=== PATIENT | female | born 1995 | race Caucasian/White ===

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

== ENCOUNTER 2018-10-06 21:44 | Inpatient (IN) | payer MEDICAID ==
[~2018-10-06] VITALS: Ht 165.1 cm; Wt 57.7 kg
[~2018-10-06 21:44] MED LIST: IBUP-1222 PO
--- NOTE | 2018-10-06 22:46 | NUR ---
PT ATTEMPTED TO GO [facility] FOR ETOH DETOX. SENT HERE FOR MEDICAL CLEARANCE. PRESENTS W/ TACHYCARDIA AND MODERATE TREMORS. STATES LAST DRINK 5 HOURS. TYPICALLY DRINKS A PINT OF HARD ALCOHOL A DAY. STATES BLOOD IN EMESIS AND "SHOULD HAVE HAD GALL BLADDER OUT YEARS AGO" FELT DIZZY TODAY. PER TRIAGE NOTE VERIFICATION LEAD WITH VSS ERP AT BED SIDE
[2018-10-06] MEDS ORDERED: PANTOPRAZOLE 40 MG IV IVP ONE (23:00)
[2018-10-06] MEDS ORDERED: THIAMINE 100 MG in SODIUM CHLORIDE 0.9% 50 ML IVPB ONE (23:00)
[2018-10-06] MEDS ORDERED: ONDANSETRON 2MG/ML, 2ML IVPush ONE (23:00)
[2018-10-06] MEDS ORDERED: SODIUM CHLORIDE 0.9% 1,000ML IVBOLUS ONE (23:00)
[2018-10-06] MEDS ORDERED: ONDANSETRON 2MG/ML, 2ML ONE (23:08)
[2018-10-06] MEDS ORDERED: LORazepam 2 MG/ML, 1ML ONE (23:09)
[2018-10-06 23:17] LABS: BASOPHILS # (AUTO) 0.03 x10^3/uL (0-0.3); BASOPHILS % (AUTO) 0 % (0-1); EOSINOPHILS % (AUTO) 1 % (1-7); LYMPHOCYTES % (AUTO) 27 % (22-44); MD NO; MEAN CORPUSCULAR HEMOGLOBIN 31.7 pg (27.0-34.8); MEAN CORPUSCULAR HGB CONC 34.6 g/dL (32.4-35.8); MEAN CORPUSCULAR VOLUME 91.7 fL (80-100); MEAN PLATELET VOLUME 7.8 fL (7.4-10.4); MONOCYTES # (AUTO) 0.55 x10^3/uL (0-1.4); MONOCYTES % (AUTO) 6 % (2-9); NEUTROPHILS # (AUTO) 5.71 x10^3/uL (1.8-8.0); NEUTROPHILS % (AUTO) 65 % (42-75); PLATELET COUNT 287 x10^3/uL (130-400); RED BLOOD COUNT 4.32 x10^6/uL (3.82-5.3); RED CELL DISTRIBUTION WIDTH 13.1 % (9.6-15.2)
[2018-10-06] MEDS: LORazepam 2 MG/ML, 1ML IVPush PRN (23:20)
[2018-10-06 23:24] LABS: ALANINE AMINOTRANSFERASE 25 U/L (12-78); ALBUMIN 3.8 g/dL (3.4-5.0); ANION GAP 15 mmol/L (5-15); CALCIUM 8.7 mg/dL (8.5-10.1); CHLORIDE 110 mmol/L (98-107); CREATININE 0.72 mg/dL (0.55-1.02)
[2018-10-06 23:29] LABS: ALKALINE PHOSPHATASE 144 U/L (45-117); BILIRUBIN,TOTAL 0.2 mg/dL (0.2-1.0); TOTAL PROTEIN 7.9 g/dL (6.4-8.2)
--- NOTE | 2018-10-06 23:35 | NUR ---
IV PLACED. BLOOD DRAW. MEDICATED. IVF HUNG.
--- NOTE | 2018-10-06 23:36 | NUR ---
PATIENT TO ULTRASOUND.
[2018-10-06] MEDS ORDERED: PANTOPRAZOLE 40 MG IV ONE (23:37)
--- NOTE | 2018-10-06 23:42 | NUR ---
BACK FROM ULTRASOUND. AWAITING RESULT.
[2018-10-07] MEDS ORDERED: LORazepam 2 MG/ML, 1ML ONE ×2 (00:20→00:25)
[2018-10-07] MEDS: LORazepam 2 MG/ML, 1ML IVPush PRN (00:23)
--- NOTE | 2018-10-07 00:38 | NUR ---
PT REPORT FROM SUBHA RICCI. THIS RN TO ASSUME CARE OF PT. AWAITING US RESULTS. PT HR IN 100-110'S RANGE. TREMORS APPEAR TO BE RESOLVING. NO IMMEDIATE NEEDS. CALL LIGHT WITHIN REACH.
--- NOTE | 2018-10-07 02:05 | NUR ---
[facility] AFTER MEDICAL CLEARANCE PER MD.
[2018-10-07] MEDS ORDERED: PANTOPRAZOLE 40 MG IV IVPush SCH (03:00)
[2018-10-07] MEDS ORDERED: LORazepam 2 MG/ML, 1ML IVPush PRN (03:00)
[2018-10-07] MEDS ORDERED: ONDANSETRON 2MG/ML, 2ML IVPush PRN (03:00)
[2018-10-07] MEDS ORDERED: THIAMINE 100MG TABLET PO ONE (03:00)
[2018-10-07 03:24] VITALS: BP 121/65
[2018-10-07] MEDS: SODIUM CHLORIDE 0.9% 1,000 ML IV SCH ×2 (04:13→14:00)
[2018-10-07 07:06] VITALS: BP 116/63
[2018-10-07 08:37] LABS: BASOPHILS # (AUTO) 0.06 x10^3/uL (0-0.3); BASOPHILS % (AUTO) 1 % (0-1); EOSINOPHILS # (AUTO) 0.15 x10^3/uL (0-0.8); EOSINOPHILS % (AUTO) 2 % (1-7); LYMPHOCYTES # (AUTO) 1.26 x10^3/uL (1-6.1); LYMPHOCYTES % (AUTO) 17 % (22-44); MD NO; MEAN CORPUSCULAR HEMOGLOBIN 30.5 pg (27.0-34.8); MEAN CORPUSCULAR HGB CONC 33.2 g/dL (32.4-35.8); MEAN CORPUSCULAR VOLUME 91.7 fL (80-100); MONOCYTES # (AUTO) 0.69 x10^3/uL (0-1.4); MONOCYTES % (AUTO) 9 % (2-9); NEUTROPHILS # (AUTO) 5.49 x10^3/uL (1.8-8.0); NEUTROPHILS % (AUTO) 72 % (42-75); PLATELET COUNT 231 x10^3/uL (130-400); RED BLOOD COUNT 3.96 x10^6/uL (3.82-5.3); RED CELL DISTRIBUTION WIDTH 13.4 % (9.6-15.2)
[2018-10-07 08:47] LABS: ALBUMIN 3.2 g/dL (3.4-5.0); ANION GAP 5 mmol/L (5-15); CALCIUM 8.6 mg/dL (8.5-10.1); CHLORIDE 111 mmol/L (98-107)
[2018-10-07 08:51] LABS: ALANINE AMINOTRANSFERASE 20 U/L (12-78); ALKALINE PHOSPHATASE 116 U/L (45-117); BILIRUBIN,TOTAL 0.8 mg/dL (0.2-1.0); CREATININE 0.56 mg/dL (0.55-1.02); TOTAL PROTEIN 6.7 g/dL (6.4-8.2)
[2018-10-07] MEDS ORDERED: FOLIC ACID 1 MG TABLET PO SCH (09:00)
[2018-10-07] MEDS ORDERED: FOLI-17 PO (13:46)
[2018-10-07] MEDS ORDERED: THIA100T67 PO (13:46)
[2018-10-07] MEDS ORDERED: OMEP-110 PO (13:46)
[2018-10-08] MEDS ORDERED: THIAMINE 100MG TABLET PO SCH (09:00)
== END 2018-10-07 15:18 | disposition home or self-care (01) | DRG 439 ==
LOC: ED 23:57 → 4WST 10-07 02:33
PROVIDERS: ADMIT Internal Medicine; ATTEND Internal Medicine
DX: K85.20 Alcohol induced acute pancreatitis without necrosis or infection (principal); K92.0 Hematemesis; F10.239 Alcohol dependence with withdrawal, unspecified; F10.229 Alcohol dependence with intoxication, unspecified; F17.200 Nicotine dependence, unspecified, uncomplicated
CPT/HCPCS: 36415; 71045; 76700; 80053; 80307; 83690; 84703; 85025; 86850; 86900; 93005; 96374; 96376; G0378; J2405; J3411; C9113; J2060; J7030

== ENCOUNTER 2018-12-17 19:17 | Emergency (ER) | payer MEDICAID ==
[~2018-12-17] VITALS: Ht 165.1 cm; Wt 60.6 kg
[~2018-12-17 19:17] MED LIST changes: +FOLI-17 PO; +OMEP-110 PO; +THIA100T67 PO
[2018-12-17 19:51] LABS: BASOPHILS # (AUTO) 0.02 x10^3/uL (0-0.1); BASOPHILS % (AUTO) 0 % (0-1); EOSINOPHILS % (AUTO) 1 % (1-7); LYMPHOCYTES # (AUTO) 1.86 x10^3/uL (1-3.4); LYMPHOCYTES % (AUTO) 22 % (22-44); MD NO; MEAN CORPUSCULAR HEMOGLOBIN 30.5 pg (27.0-34.8); MEAN CORPUSCULAR HGB CONC 33.3 g/dL (32.4-35.8); MEAN CORPUSCULAR VOLUME 91.6 fL (80-100); MEAN PLATELET VOLUME 8.6 fL (7.4-10.4); MONOCYTES # (AUTO) 0.29 x10^3/uL (0.2-0.8); MONOCYTES % (AUTO) 4 % (2-9); NEUTROPHILS # (AUTO) 6.22 x10^3/uL (1.8-6.8); NEUTROPHILS % (AUTO) 73 % (42-75); PLATELET COUNT 227 x10^3/uL (130-400); RED BLOOD COUNT 4.82 x10^6/uL (3.82-5.3); RED CELL DISTRIBUTION WIDTH 14.5 % (9.6-15.2)
[2018-12-17 20:03] LABS: ALBUMIN 3.8 g/dL (3.4-5.0); ANION GAP 11 mmol/L (5-15); CALCIUM 8.7 mg/dL (8.5-10.1); CHLORIDE 112 mmol/L (98-107)
[2018-12-17 20:21] LABS: CREATININE 0.56 mg/dL (0.55-1.02)
[2018-12-17 20:27] LABS: CULTURE INDICATED? YES; MICROSCOPIC AUTO
[2018-12-17 20:43] LABS: AMPHETAMINE SCREEN, URINE Negative (Negative); BARBITURATE SCREEN, URINE Negative (Negative); BENZODIAZEPINE SCREEN, URINE Negative (Negative); CANNABINOID SCREEN, URINE Negative (Negative); COCAINE SCREEN, URINE Negative (Negative); METHADONE SCREEN, URINE Negative (Negative); OPIATE SCREEN, URINE Negative (Negative)
[2018-12-17 21:42] VITALS: BP 121/74
--- NOTE | 2018-12-17 21:42 | NUR ---
GISELLE SAW PT AND STATED SHE WOULD FILE A CASE WITH CPS. PER GISELLE THIS RN DOES NOT NEED TO ALSO FILE A CASE.
--- NOTE | 2018-12-17 21:44 | NUR ---
PREVIOUS NOTE MADE BY JAREN WAS ACTUALLY MADE BY THIS RN
--- NOTE | 2018-12-17 21:44 | NUR ---
GISELLE SAW PT AND STATED SHE WOULD FILE A CASE WITH CPS. PER GISELLE THIS RN DOES NOT NEED TO ALSO FILE A CASE.
== END 2018-12-17 21:44 | disposition home or self-care (01) ==
LOC: ED 20:52
DX: O20.0 Threatened abortion (principal); Z3A.10 10 weeks gestation of pregnancy; F10.129 Alcohol abuse with intoxication, unspecified; J45.909 Unspecified asthma, uncomplicated; F32.9 Major depressive disorder, single episode, unspecified
CPT/HCPCS: 36415; 76801; 80048; 80307; 81001; 82040; 84702; 85025; 87086; 99284

== ENCOUNTER 2019-07-11 18:30 | Outpatient (CLI) | payer MEDICAID ==
[~2019-07-11] VITALS: Ht 165.1 cm; Wt 65.9 kg
== END 2019-07-11 19:39 | disposition home or self-care (01) ==
LOC: LDOP 18:30
PROVIDERS: ATTEND Obstetrics & Gynecology
DX: O42.92 Full-term premature rupture of membranes, unspecified as to length of time between rupture and onset of labor (principal); Z3A.49 Greater than 42 weeks gestation of pregnancy
CPT/HCPCS: 59025; 84112; 87081; 99211; G0463

== ENCOUNTER 2019-07-18 21:44 | Inpatient (IN) | payer MEDICAID ==
[~2019-07-18] VITALS: Ht 165.1 cm; Wt 69.0 kg
[2019-07-18] MEDS ORDERED: NEWBORN KIT ONE (22:11)
[2019-07-18] MEDS ORDERED: OXYTOCIN 30U/ 0.9% NaCL 500ML 500 ML ONE ×2 (22:11→22:17)
[2019-07-18] MEDS ORDERED: LACTATED RINGERS 1,000 ML IV SCH (22:15)
[2019-07-18] MEDS ORDERED: OXYTOCIN 30U/ 0.9% NaCL 500ML 500 ML IV ONE (22:15)
[2019-07-18] MEDS ORDERED: D5%-LACTATED RINGERS 1,000 ML IV SCH (22:15)
[2019-07-18] MEDS ORDERED: LIDOCAINE 1%, 20ML ONE (22:17)
[2019-07-18] MEDS ORDERED: MISOPROSTOL 200 MCG TABLET ONE (22:17)
[2019-07-18] MEDS ORDERED: TERBUTALINE 1 MG/ML, 1ML IVPush PRN (22:30)
[2019-07-18] MEDS ORDERED: CALCIUM CARBONATE 500 MG TAB.CHEW PO PRN (22:30)
[2019-07-18] MEDS ORDERED: FENTANYL PF 100 MCG/2ML IVPush PRN (22:30)
[2019-07-18] MEDS ORDERED: FENTANYL PF 100 MCG/2ML IV PRN (22:30)
[2019-07-18] MEDS ORDERED: TERBUTALINE 1 MG/ML, 1ML SQ PRN (22:30)
[2019-07-18] MEDS ORDERED: PLEASE ENTER HEIGHT AND WEIGHT MC SCH ×2 (22:30→23:00)
[2019-07-18] MEDS ORDERED: ONDANSETRON 2MG/ML, 2ML IVPush PRN (22:30)
[2019-07-18 22:34] LABS: MICROSCOPIC INDICATED
[2019-07-18 22:39] LABS: AMPHETAMINE SCREEN, URINE Negative (Negative); BARBITURATE SCREEN, URINE Negative (Negative); BENZODIAZEPINE SCREEN, URINE Negative (Negative); CANNABINOID SCREEN, URINE Negative (Negative); COCAINE SCREEN, URINE Negative (Negative); METHADONE SCREEN, URINE Negative (Negative); OPIATE SCREEN, URINE Negative (Negative)
[2019-07-18 22:43] LABS: BASOPHILS # (AUTO) 0.06 x10^3/uL (0-0.1); BASOPHILS % (AUTO) 1 % (0-1); EOSINOPHILS # (AUTO) 0.05 x10^3/uL (0-0.4); EOSINOPHILS % (AUTO) 1 % (1-7); LYMPHOCYTES # (AUTO) 2.38 x10^3/uL (1-3.4); LYMPHOCYTES % (AUTO) 21 % (22-44); MD NO; MEAN CORPUSCULAR HEMOGLOBIN 28.6 pg (27.0-34.8); MEAN CORPUSCULAR HGB CONC 32.7 g/dL (32.4-35.8); MEAN CORPUSCULAR VOLUME 87.3 fL (80-100); MEAN PLATELET VOLUME 8.9 fL (7.4-10.4); MONOCYTES # (AUTO) 0.46 x10^3/uL (0.2-0.8); MONOCYTES % (AUTO) 4 % (2-9); NEUTROPHILS # (AUTO) 8.54 x10^3/uL (1.8-6.8); NEUTROPHILS % (AUTO) 74 % (42-75); PLATELET COUNT 244 x10^3/uL (130-400); RED BLOOD COUNT 4.35 x10^6/uL (3.82-5.3); RED CELL DISTRIBUTION WIDTH 15.6 % (9.6-15.2)
[2019-07-18] MEDS ORDERED: OXYTOCIN 30U/ 0.9% NaCL 500ML 500 ML IV SCH (22:50)
[2019-07-18] MEDS ORDERED: ACETAMINOPHEN 325 MG TABLET PO PRN (23:00)
[2019-07-18] MEDS ORDERED: MISOPROSTOL 200 MCG TABLET PO PRN (23:00)
[2019-07-18] MEDS ORDERED: SIMETHICONE 80 MG CHEW TAB PO PRN (23:00)
[2019-07-18] MEDS ORDERED: HYDROcodone/APAP 5/325 TABLET PO PRN ×2 (23:00)
[2019-07-18] MEDS ORDERED: METOCLOPRAMIDE 5 MG/ML, 2ML IV PRN (23:00)
[2019-07-18] MEDS ORDERED: DOCUSATE 100 MG CAPSULE PO PRN (23:00)
[2019-07-18] MEDS ORDERED: ONDANSETRON 2MG/ML, 2ML IV PRN (23:00)
[2019-07-18] MEDS ORDERED: IBUPROFEN 600 MG TABLET ONE (23:15)
[2019-07-18] MEDS: IBUPROFEN 600 MG TABLET PO PRN (23:16)
[2019-07-18 23:25] VITALS: BP 124/73
[2019-07-18] MEDS ORDERED: DEXTROSE 47%, 15GM GEL ONE (23:26)
[2019-07-19 00:50] VITALS: BP 122/72
[2019-07-19 04:30] VITALS: BP 111/63
[2019-07-19 06:21] LABS: MEAN CORPUSCULAR HEMOGLOBIN 28.7 pg (27.0-34.8); MEAN CORPUSCULAR VOLUME 87.2 fL (80-100); MEAN PLATELET VOLUME 8.9 fL (7.4-10.4); PLATELET COUNT 215 x10^3/uL (130-400); RED BLOOD COUNT 3.93 x10^6/uL (3.82-5.3); RED CELL DISTRIBUTION WIDTH 15.2 % (9.6-15.2)
[2019-07-19 06:22] LABS: BASOPHILS # (AUTO) 0.09 x10^3/uL (0-0.1); BASOPHILS % (AUTO) 1 % (0-1); EOSINOPHILS # (AUTO) 0.01 x10^3/uL (0-0.4); EOSINOPHILS % (AUTO) 0 % (1-7); LYMPHOCYTES # (AUTO) 1.91 x10^3/uL (1-3.4); LYMPHOCYTES % (AUTO) 12 % (22-44); MD NO; MONOCYTES # (AUTO) 0.55 x10^3/uL (0.2-0.8); MONOCYTES % (AUTO) 3 % (2-9); NEUTROPHILS # (AUTO) 13.46 x10^3/uL (1.8-6.8); NEUTROPHILS % (AUTO) 84 % (42-75)
[2019-07-19] MEDS: IBUPROFEN 600 MG TABLET PO PRN ×2 (06:28→14:56)
[2019-07-19 07:06] VITALS: BP 104/68
[2019-07-19] MEDS ORDERED: PRENATAL VIT/IRON/FA 1 EACH TABLET PO SCH (09:00)
[2019-07-19 12:21] VITALS: BP 121/76
[2019-07-19 15:55] VITALS: BP 110/67
[2019-07-19] MEDS ORDERED: IBUP-1223 PO (18:34)
== END 2019-07-19 19:00 | disposition home or self-care (01) | DRG 560 ==
LOC: LDOP 21:44 → LDIP 22:08 → 2NW 07-19 00:37
PROVIDERS: ADMIT Obstetrics & Gynecology Female Pelvic Medicine and Reconstructive Surgery; ATTEND Obstetrics & Gynecology Female Pelvic Medicine and Reconstructive Surgery
PROC: 10E0XZZ Delivery of Products of Conception, External Approach (ICD-10-PCS; principal; 2019-07-18)
PROC: 10907ZC Drainage of Amniotic Fluid, Therapeutic from Products of Conception, Via Natural or Artificial Opening (ICD-10-PCS; 2019-07-18)
DX: O62.3 Precipitate labor (principal); F10.20 Alcohol dependence, uncomplicated; O99.314 Alcohol use complicating childbirth; Y90.9 Presence of alcohol in blood, level not specified; Z37.0 Single live birth; Z3A.40 40 weeks gestation of pregnancy
CPT/HCPCS: 36415; 80307; 81001; 85025; 86592; 86850; 86900; G0378; J2590; J7120

== ENCOUNTER 2019-07-24 11:35 | Inpatient (IN) | payer MEDICAID ==
[~2019-07-24] VITALS: Ht 165.1 cm; Wt 60.1 kg
[~2019-07-24 11:35] MED LIST changes: +IBUP-1223 PO
[2019-07-24] MEDS ORDERED: DOCUSATE 100 MG CAPSULE PO PRN (12:30)
[2019-07-24] MEDS ORDERED: POLYETHYLENE GLYCOL 17 GM PACKET PO PRN (12:30)
[2019-07-24] MEDS ORDERED: ONDANSETRON ODT 4 MG PO PRN (12:30)
[2019-07-24] MEDS ORDERED: BISACODYL 10 MG SUPP PR PRN (12:30)
[2019-07-24] MEDS ORDERED: ACETAMINOPHEN 325 MG TABLET PO PRN (12:30)
[2019-07-24] MEDS ORDERED: PLEASE ENTER HEIGHT AND WEIGHT MC SCH (15:00)
[2019-07-24 15:37] VITALS: BP 106/65
[2019-07-24 16:35] LABS: CHOL/HDL RATIO 1.9; FREE T4 (FREE THYROXINE) 1.23 ng/dL (0.76-1.46); LDL/HDL RATIO 0.7 (0.5-3.0)
[2019-07-24 18:38] LABS: MICROSCOPIC AUTO
[2019-07-24 18:40] LABS: CULTURE INDICATED? YES
[2019-07-24 19:29] VITALS: BP 108/72
[2019-07-25 07:40] VITALS: BP 106/62
[2019-07-25 20:07] VITALS: BP 107/72
[2019-07-26 07:38] VITALS: BP 109/65
[2019-07-26] MEDS: BUPROPION SR 150 MG TABLET PO SCH (13:55)
[2019-07-26 19:56] VITALS: BP 125/79
[2019-07-27 07:32] VITALS: BP 110/67
[2019-07-27] MEDS: BUPROPION SR 150 MG TABLET PO SCH (08:21)
[2019-07-27 19:21] VITALS: BP 114/70
[2019-07-28 07:24] VITALS: BP 111/69
[2019-07-28] MEDS: BUPROPION SR 150 MG TABLET PO SCH (08:52)
[2019-07-28 19:15] VITALS: BP 105/69
[2019-07-29 07:22] VITALS: BP 110/70
[2019-07-29] MEDS: BUPROPION SR 150 MG TABLET PO SCH (08:18)
[2019-07-29] MEDS ORDERED: OMEP-110 PO (15:31)
[2019-07-29] MEDS ORDERED: BUPR150T73 PO (15:31)
[2019-07-29 19:35] VITALS: BP 112/77
[2019-07-30 07:37] VITALS: BP 111/64
[2019-07-30] MEDS: BUPROPION SR 150 MG TABLET PO SCH (07:57)
== END 2019-07-30 09:07 | disposition home or self-care (01) | DRG 561 ==
LOC: 3E 14:31
PROVIDERS: ADMIT Psychiatry & Neurology Psychosomatic Medicine; ATTEND Psychiatry & Neurology Psychosomatic Medicine
DX: O99.345 Other mental disorders complicating the puerperium (principal); F33.2 Major depressive disorder, recurrent severe without psychotic features; O99.63 Diseases of the digestive system complicating the puerperium; K21.9 Gastro-esophageal reflux disease without esophagitis
CPT/HCPCS: 36415; 71045; 80061; 81001; 84439; 84443; 87086; 93005

== ENCOUNTER 2019-12-15 06:13 | Emergency (ER) | payer MEDICAID ==
[~2019-12-15] VITALS: Ht 165.1 cm; Wt 55.7 kg
[~2019-12-15 06:13] MED LIST changes: +BUPR150T73 PO
[2019-12-15 07:48] LABS: BASOPHILS # (AUTO) 0.03 x10^3/uL (0-0.1); BASOPHILS % (AUTO) 1 % (0-1); EOSINOPHILS # (AUTO) 0.23 x10^3/uL (0-0.4); EOSINOPHILS % (AUTO) 5 % (1-7); LYMPHOCYTES % (AUTO) 44 % (22-44); MD NO; MEAN CORPUSCULAR HEMOGLOBIN 30.4 pg (27.0-34.8); MEAN CORPUSCULAR HGB CONC 32.9 g/dL (32.4-35.8); MEAN CORPUSCULAR VOLUME 92.3 fL (80-100); MEAN PLATELET VOLUME 9.3 fL (7.4-10.4); MONOCYTES # (AUTO) 0.31 x10^3/uL (0.2-0.8); MONOCYTES % (AUTO) 7 % (2-9); NEUTROPHILS # (AUTO) 1.86 x10^3/uL (1.8-6.8); NEUTROPHILS % (AUTO) 43 % (42-75); PLATELET COUNT 205 x10^3/uL (130-400); RED BLOOD COUNT 4.22 x10^6/uL (3.82-5.3); RED CELL DISTRIBUTION WIDTH 12.5 % (9.6-15.2)
--- NOTE | 2019-12-15 07:50 | NUR ---
PT STATES HX OF GALL BLADDER PAIN, STATES WAS TOLD TO GET GALL BLADDER REMOVED 5 YEARS AGO, BUT NEVER DID. JHON DOUGLAS AT BEDSIDE FOR ASSESSMENT. URINE COLLECTED, SENT TO LAB. PT STATES PAIN LEVEL COMFORTABLE AT THIS TIME.
[2019-12-15 07:55] LABS: MICROSCOPIC NOT IND
[2019-12-15 08:03] LABS: ALANINE AMINOTRANSFERASE 29 U/L (12-78); ALBUMIN 3.3 g/dL (3.4-5.0); ANION GAP 9 mmol/L (5-15); CALCIUM 8.2 mg/dL (8.5-10.1); CHLORIDE 110 mmol/L (98-107); CREATININE 0.72 mg/dL (0.55-1.02)
[2019-12-15 08:07] LABS: ALKALINE PHOSPHATASE 77 U/L (45-117); BILIRUBIN,TOTAL 0.8 mg/dL (0.2-1.0); TOTAL PROTEIN 6.9 g/dL (6.4-8.2)
--- NOTE | 2019-12-15 09:04 | NUR ---
PT OK FOR D/C PER ERMD. PT VERBALIZED UNDERSTANDING OF D/C PAPERWORK, HAS ALL OWN BELONGINGS UPON D/C.
[2019-12-15 09:05] VITALS: BP 118/76
== END 2019-12-15 09:07 | disposition home or self-care (01) ==
LOC: ED 07:54
DX: K80.50 Calculus of bile duct without cholangitis or cholecystitis without obstruction (principal); R10.10 Upper abdominal pain, unspecified; J45.909 Unspecified asthma, uncomplicated
CPT/HCPCS: 36415; 76700; 80053; 81003; 83690; 84703; 85025; 99284